=== PATIENT | male | born 1960 | race African-American/Black ===

== ENCOUNTER 2017-01-26 11:40 | Emergency (ER) | payer MEDICARE, MEDICAID ==
[~2017-01-26] VITALS: Ht 177.8 cm; Wt 77.0 kg
[2017-01-26 15:38] LABS: BASOPHILS % 0.9 % (0.0-2.0); EOSINOPHILS % 3.7 % (0.0-5.0); HEMATOCRIT. 36.8 % (42.0-52.0); HEMOGLOBIN. 12.6 g/dL (14.0-18.0); LYMPHOCYTES % 22.2 % (20.0-50.0); MEAN CORPUSCULAR HEMOGLOBIN 31.3 pg (28.0-32.0); MEAN CORPUSCULAR VOLUME 91.7 fL (80.0-94.0); MEAN PLATELET VOLUME 8.9 fl (7.4-10.4); MONOCYTES % 11.6 % (2.0-8.0); NEUTROPHILS % 61.6 % (40.0-76.0); PLATELET 151 x1000/uL (130-400); RED BLOOD CELL COUNT 4.02 mill/uL (4.7-6.1); RED CELL DISTRIBUTION WIDTH 13.8 % (11.6-14.6)
[2017-01-26 15:43] LABS: INR 1.1; PARTIAL THROMBOPLASTIN TIME 28.6 sec (24.0-34.0); PROTHROMBIN TIME 11.7 sec
[2017-01-26 15:44] LABS: CARBON DIOXIDE 30 mEq/L (21-32); CHLORIDE 106 mEq/L (98-107)
[2017-01-26 16:50] LABS: CLARITY URINE CLEAR (CLEAR); COLOR URINE YELLOW (YELLOW); GLUCOSE URINE NEGATIVE (NEGATIVE); KETONES URINE NEGATIVE (NEGATIVE); LEUKOCYTE ESTERASE URINE NEGATIVE (NEGATIVE); NITRITE URINE NEGATIVE (NEGATIVE); OCCULT BLOOD URINE NEGATIVE (NEGATIVE); PH URINE 6.5 (4.5-8.0); PROTEIN URINE NEGATIVE (NEGATIVE); SPECIFIC GRAVITY URINE 1.029 (1.005-1.030)
[2017-01-26] MEDS ORDERED: KETOROLAC 30MG/ML VIAL IV ONE (18:30)
[2017-01-26 19:14] VITALS: BP 136/85
== END 2017-01-26 19:24 | disposition home or self-care (01) ==
LOC: ER 14:58
DX: M54.2 Cervicalgia (principal); R51 Headache; M54.9 Dorsalgia, unspecified; F12.10 Cannabis abuse, uncomplicated; V19.9XXA Pedal cyclist (driver) (passenger) injured in unspecified traffic accident, initial encounter; Y93.89 Activity, other specified; Y92.89 Other specified places as the place of occurrence of the external cause; Y99.8 Other external cause status
CPT/HCPCS: 36415; 70450; 72125; 80053; 81003; 85025; 85610; 85730; 99285

== ENCOUNTER 2017-06-22 12:19 | Emergency (ER) | payer MEDICARE, MEDICAID ==
[~2017-06-22] VITALS: Ht 170.2 cm; Wt 70.0 kg
[~2017-06-22 12:19] MED LIST: OXYC30TA89 PO
[2017-06-22] MEDS ORDERED: ACETAMINOPHEN WITH CODEINE 300/30MG TABLET PO STA (13:38)
[2017-06-22 14:40] LABS: BASOPHILS % 0.7 % (0.0-2.0); EOSINOPHILS % 6.4 % (0.0-5.0); HEMATOCRIT. 37.4 % (42.0-52.0); HEMOGLOBIN. 12.8 g/dL (14.0-18.0); LYMPHOCYTES % 28.6 % (20.0-50.0); MEAN CORPUSCULAR HEMOGLOBIN 31.9 pg (28.0-32.0); MEAN PLATELET VOLUME 8.8 fl (7.4-10.4); NEUTROPHILS % 50.3 % (40.0-76.0); PLATELET 172 x1000/uL (130-400); RED BLOOD CELL COUNT 4.02 mill/uL (4.7-6.1); RED CELL DISTRIBUTION WIDTH 13.7 % (11.6-14.6)
[2017-06-22 14:45] LABS: INR 1.1; PROTHROMBIN TIME 11.3 sec (9.4-11.6)
[2017-06-22 14:55] LABS: CARBON DIOXIDE 32 mEq/L (21-32); CHLORIDE 105 mEq/L (98-107); ETHANOL BLOOD < 10 mg/dL; TROPONIN I < 0.02 ng/mL (0.00-0.04)
[2017-06-22 15:24] LABS: *AMPHETAMINES SCREEN URINE NEGATIVE (NEGATIVE); *BARBITURATES SCREEN URINE NEGATIVE (NEGATIVE); *BENZODIAZEPINES SCREEN URINE NEGATIVE (NEGATIVE); *COCAINE SCREEN URINE NEGATIVE (NEGATIVE); CANNABINOID URINE SCREEN NEGATIVE (NEGATIVE); METHADONE URINE SCREEN NEGATIVE (NEGATIVE); OPIATES URINE SCREEN NEGATIVE (NEGATIVE); PHENCYCLIDINE URINE SCREEN NEGATIVE (NEGATIVE)
[2017-06-22] MEDS ORDERED: IBUPROFEN 600MG TABLET PO ONE (16:00)
[2017-06-22 16:13] VITALS: BP 150/92
== END 2017-06-22 16:23 | disposition home or self-care (01) ==
LOC: ER 12:30
DX: R07.89 Other chest pain (principal); F12.10 Cannabis abuse, uncomplicated
CPT/HCPCS: 36415; 80053; 80305; 83880; 84484; 85025; 85610; 93005; 99285; G0482

== ENCOUNTER 2017-07-02 15:44 | Emergency (ER) | payer MEDICARE, MEDICAID ==
[~2017-07-02] VITALS: Ht 185.4 cm; Wt 73.0 kg
[2017-07-02 18:21] LABS: BASOPHILS % 0.6 % (0.0-2.0); EOSINOPHILS % 3.7 % (0.0-5.0); HEMATOCRIT. 38.4 % (42.0-52.0); LYMPHOCYTES % 12.1 % (20.0-50.0); MEAN CORPUSCULAR HEMOGLOBIN 31.7 pg (28.0-32.0); MEAN CORPUSCULAR VOLUME 93.9 fL (80.0-94.0); MEAN PLATELET VOLUME 8.3 fl (7.4-10.4); MONOCYTES % 14.4 % (2.0-8.0); NEUTROPHILS % 69.2 % (40.0-76.0); PLATELET 216 x1000/uL (130-400); RED BLOOD CELL COUNT 4.09 mill/uL (4.7-6.1); RED CELL DISTRIBUTION WIDTH 13.9 % (11.6-14.6)
[2017-07-02 18:23] LABS: CHLORIDE 107 mEq/L (98-107)
[2017-07-02 18:24] LABS: INR 1.1; PROTHROMBIN TIME 11.2 sec (9.4-11.6)
[2017-07-02 18:31] LABS: CARBON DIOXIDE 30 mEq/L (21-32); ETHANOL BLOOD < 10 mg/dL
[2017-07-02 19:28] LABS: CLARITY URINE CLEAR (CLEAR); COLOR URINE YELLOW (YELLOW); KETONES URINE TRACE (NEGATIVE); LEUKOCYTE ESTERASE URINE NEGATIVE (NEGATIVE); NITRITE URINE NEGATIVE (NEGATIVE); OCCULT BLOOD URINE NEGATIVE (NEGATIVE); PROTEIN URINE TRACE (NEGATIVE); SPECIFIC GRAVITY URINE 1.024 (1.005-1.030)
[2017-07-02 19:37] LABS: *AMPHETAMINES SCREEN URINE PRESUMTIVE POSITIVE (NEGATIVE); *BARBITURATES SCREEN URINE NEGATIVE (NEGATIVE); *BENZODIAZEPINES SCREEN URINE NEGATIVE (NEGATIVE); *COCAINE SCREEN URINE NEGATIVE (NEGATIVE); CANNABINOID URINE SCREEN NEGATIVE (NEGATIVE); METHADONE URINE SCREEN NEGATIVE (NEGATIVE); OPIATES URINE SCREEN NEGATIVE (NEGATIVE); PHENCYCLIDINE URINE SCREEN NEGATIVE (NEGATIVE)
[2017-07-02] MEDS ORDERED: MORPHINE SULFATE 4 MG/ML CPJ (NOT FOR IM USE) IV ONE (22:15)
[2017-07-03 01:06] VITALS: BP 131/87
== END 2017-07-03 01:27 | disposition home or self-care (01) ==
LOC: ER 15:44
DX: M48.061 Spinal stenosis, lumbar region without neurogenic claudication (principal); M51.26 Other intervertebral disc displacement, lumbar region; E07.9 Disorder of thyroid, unspecified; F12.10 Cannabis abuse, uncomplicated; Z98.1 Arthrodesis status
CPT/HCPCS: 36415; 72141; 72148; 80053; 80305; 81001; 85025; 85610; 96374; 99285; G0482; J2270

== ENCOUNTER 2018-10-20 23:53 | Emergency (ER) | payer MEDICARE, MEDICAID ==
[~2018-10-20] VITALS: Ht 175.3 cm; Wt 81.8 kg
[2018-10-21] MEDS ORDERED: MORPHINE SULFATE 4 MG/ML CPJ (NOT FOR IM USE) IV STA (01:18)
[2018-10-21 01:37] LABS: HEMATOCRIT. 35.8 % (42.0-52.0); HEMOGLOBIN. 11.9 g/dL (14.0-18.0); MEAN CORPUSCULAR HEMOGLOBIN 30.6 pg (28.0-32.0); MEAN PLATELET VOLUME 7.7 fl (7.4-10.4); PLATELET 217 x1000/uL (130-400); RED CELL DISTRIBUTION WIDTH 14.1 % (11.6-14.6)
[2018-10-21 01:43] LABS: CHLORIDE 109 mEq/L (98-107)
[2018-10-21 01:47] LABS: ETHANOL BLOOD < 10 mg/dL
[2018-10-21 01:49] LABS: PLATELET ESTIMATE NORMAL
[2018-10-21 05:33] LABS: *AMPHETAMINES SCREEN URINE PRESUMTIVE POSITIVE (NEGATIVE)
[2018-10-21 05:34] LABS: *BARBITURATES SCREEN URINE NEGATIVE (NEGATIVE); *BENZODIAZEPINES SCREEN URINE NEGATIVE (NEGATIVE); *COCAINE SCREEN URINE NEGATIVE (NEGATIVE); METHADONE URINE SCREEN NEGATIVE (NEGATIVE); OPIATES URINE SCREEN PRESUMTIVE POSITIVE (NEGATIVE); PHENCYCLIDINE URINE SCREEN NEGATIVE (NEGATIVE)
[2018-10-21 05:35] LABS: CANNABINOID URINE SCREEN NEGATIVE (NEGATIVE)
[2018-10-21 06:14] VITALS: BP 117/76
== END 2018-10-21 06:25 | disposition home or self-care (01) ==
LOC: ER 23:53
DX: R60.0 Localized edema (principal); F12.10 Cannabis abuse, uncomplicated; Z98.890 Other specified postprocedural states
CPT/HCPCS: 36415; 71045; 80053; 80305; 80320; 83880; 85025; 93005; 93970; 96374; 99284; J2270; G0480

== ENCOUNTER 2021-08-22 04:35 | Inpatient (IN) | payer MEDICARE, MEDICAID ==
[~2021-08-22] VITALS: Ht 177.8 cm; Wt 83.5 kg
[~2021-08-22 04:35] MED LIST changes: +MIRA50TA PO; -OXYC30TA89 PO; +TAMS-11 PO
[2021-08-22 05:28] LABS: EOSINOPHILS % 11.2 % (0.0-5.0); HEMATOCRIT. 39.2 % (42.0-52.0); HEMOGLOBIN. 13.6 g/dL (14.0-18.0); LYMPHOCYTES % 30.6 % (20.0-50.0); MEAN CORPUSCULAR HEMOGLOBIN 31.5 pg (28.0-32.0); MEAN PLATELET VOLUME 9.1 fl (7.4-10.4); MONOCYTES % 11.7 % (2.0-8.0); NEUTROPHILS % 45.5 % (40.0-76.0); PLATELET 143 x1000/uL (130-400); RED BLOOD CELL COUNT 4.31 mill/uL (4.7-6.1); RED CELL DISTRIBUTION WIDTH 14.1 % (11.6-14.6)
[2021-08-22 05:41] LABS: CHLORIDE 111 mEq/L (98-107)
[2021-08-22 05:46] LABS: ETHANOL BLOOD < 10 mg/dL
[2021-08-22] MEDS ORDERED: IOHEXOL-350 100 ML BOTTLE ONE (05:54)
[2021-08-22 06:19] LABS: CLARITY URINE CLEAR (CLEAR); COLOR URINE YELLOW (YELLOW); KETONES URINE NEGATIVE (NEGATIVE); LEUKOCYTE ESTERASE URINE NEGATIVE (NEGATIVE); NITRITE URINE NEGATIVE (NEGATIVE); OCCULT BLOOD URINE NEGATIVE (NEGATIVE); PH URINE 7.5 (4.5-8.0); PROTEIN URINE NEGATIVE (NEGATIVE); SPECIFIC GRAVITY URINE 1.027 (1.005-1.030); UROBILINOGEN URINE 0.2 E.U./dL (0.2-1.0)
[2021-08-22 06:48] LABS: *AMPHETAMINES SCREEN URINE NEGATIVE (NEGATIVE); *BARBITURATES SCREEN URINE NEGATIVE (NEGATIVE); *BENZODIAZEPINES SCREEN URINE NEGATIVE (NEGATIVE); *COCAINE SCREEN URINE NEGATIVE (NEGATIVE)
[2021-08-22 06:49] LABS: OPIATES URINE SCREEN NEGATIVE (NEGATIVE)
[2021-08-22 06:50] LABS: CANNABINOID URINE SCREEN NEGATIVE (NEGATIVE); METHADONE URINE SCREEN NEGATIVE (NEGATIVE); PHENCYCLIDINE URINE SCREEN NEGATIVE (NEGATIVE)
[2021-08-22] MEDS ORDERED: ASPIRIN 325MG EC TABLET PO ONE (12:30)
[2021-08-22 16:30] VITALS: BP 160/97
[2021-08-22 17:00] VITALS: BP 160/97
[2021-08-22] MEDS: AMLODIPINE 10MG TABLET PO SCH (18:47)
[2021-08-22 20:00] VITALS: BP 127/84
[2021-08-23] VITALS: BP 132/90
[2021-08-23] MEDS ORDERED: ACETAMINOPHEN 650MG/20.3ML UDC PO PRN (02:30)
[2021-08-23 04:00] VITALS: BP 142/95
[2021-08-23] MEDS: ACETAMINOPHEN 325MG TABLET PO PRN (06:27)
[2021-08-23 08:00] VITALS: BP 124/91
[2021-08-23] MEDS: ASPIRIN 81MG TABLET PO SCH (09:35)
[2021-08-23] MEDS: AMLODIPINE 10MG TABLET PO SCH (09:35)
[2021-08-23 12:00] VITALS: BP 114/86
[2021-08-23 16:00] VITALS: BP 130/94
[2021-08-23 20:00] VITALS: BP 126/85
[2021-08-24] VITALS: BP 116/82
[2021-08-24 04:00] VITALS: BP 139/90
[2021-08-24 06:50] LABS: BASOPHILS % 0.9 % (0.0-2.0); EOSINOPHILS % 9.6 % (0.0-5.0); HEMATOCRIT. 39.9 % (42.0-52.0); HEMOGLOBIN. 13.9 g/dL (14.0-18.0); LYMPHOCYTES % 33.3 % (20.0-50.0); MEAN CORPUSCULAR HEMOGLOBIN 31.5 pg (28.0-32.0); MEAN CORPUSCULAR VOLUME 90.2 fL (80.0-94.0); MEAN PLATELET VOLUME 9.6 fl (7.4-10.4); NEUTROPHILS % 43.2 % (40.0-76.0); PLATELET 149 x1000/uL (130-400); RED BLOOD CELL COUNT 4.43 mill/uL (4.7-6.1); RED CELL DISTRIBUTION WIDTH 14.2 % (11.6-14.6)
[2021-08-24 07:29] LABS: CHLORIDE 110 mEq/L (98-107)
[2021-08-24 07:52] LABS: T4 FREE 1.06 ng/dL (0.76-1.46)
[2021-08-24 08:00] VITALS: BP 130/91
[2021-08-24] MEDS: ASPIRIN 81MG TABLET PO SCH (09:29)
[2021-08-24] MEDS: AMLODIPINE 10MG TABLET PO SCH (09:29)
[2021-08-24 10:54] LABS: FOLIC ACID (FOLATE) SERUM 10.4 ng/mL (>5.38)
[2021-08-24 12:00] VITALS: BP 100/75
[2021-08-24 13:13] LABS: HEMATOCRIT 44.2 % (42.0-52.0); HEMOGLOBIN 14.7 g/dL (14.0-18.0)
[2021-08-24 16:00] VITALS: BP 134/89
[2021-08-24 20:00] VITALS: BP 138/75
[2021-08-25] VITALS: BP 133/92
[2021-08-25] MEDS: ACETAMINOPHEN 325MG TABLET PO PRN ×2 (01:29→12:33)
[2021-08-25 04:00] VITALS: BP 99/70
[2021-08-25 04:11] LABS: CANCER ANTIGEN 125 12.1 U/mL (Not Estab.)
[2021-08-25 08:00] VITALS: BP 125/82
[2021-08-25 09:00] LABS: BASOPHILS % 1.1 % (0.0-2.0); EOSINOPHILS % 10.7 % (0.0-5.0); HEMATOCRIT. 41.5 % (42.0-52.0); HEMOGLOBIN. 14.1 g/dL (14.0-18.0); LYMPHOCYTES % 31.5 % (20.0-50.0); MEAN CORPUSCULAR HEMOGLOBIN 30.7 pg (28.0-32.0); MEAN CORPUSCULAR VOLUME 90.7 fL (80.0-94.0); MEAN PLATELET VOLUME 9.4 fl (7.4-10.4); MONOCYTES % 13.7 % (2.0-8.0); PLATELET 157 x1000/uL (130-400); RED BLOOD CELL COUNT 4.57 mill/uL (4.7-6.1); RED CELL DISTRIBUTION WIDTH 13.9 % (11.6-14.6)
[2021-08-25] MEDS: AMLODIPINE 10MG TABLET PO SCH (09:23)
[2021-08-25] MEDS: ASPIRIN 81MG TABLET PO SCH (09:23)
[2021-08-25 09:36] LABS: CHLORIDE 110 mEq/L (98-107)
[2021-08-25 12:00] VITALS: BP 117/82
[2021-08-25 16:00] VITALS: BP 120/82
[2021-08-25 20:00] VITALS: BP 122/78
[2021-08-26] VITALS: BP 113/73
[2021-08-26 04:00] VITALS: BP 122/76
[2021-08-26 07:34] LABS: BASOPHILS % 1.1 % (0.0-2.0); EOSINOPHILS % 11.5 % (0.0-5.0); HEMATOCRIT. 40.2 % (42.0-52.0); HEMOGLOBIN. 14.3 g/dL (14.0-18.0); LYMPHOCYTES % 39.2 % (20.0-50.0); MEAN CORPUSCULAR HEMOGLOBIN 32.3 pg (28.0-32.0); MEAN CORPUSCULAR VOLUME 90.5 fL (80.0-94.0); MEAN PLATELET VOLUME 9.6 fl (7.4-10.4); MONOCYTES % 13.5 % (2.0-8.0); NEUTROPHILS % 34.7 % (40.0-76.0); PLATELET 159 x1000/uL (130-400); RED BLOOD CELL COUNT 4.44 mill/uL (4.7-6.1); RED CELL DISTRIBUTION WIDTH 13.9 % (11.6-14.6)
[2021-08-26 07:45] VITALS: BP 132/81
[2021-08-26 07:54] LABS: CHLORIDE 109 mEq/L (98-107)
[2021-08-26] MEDS: AMLODIPINE 10MG TABLET PO SCH (09:14)
[2021-08-26] MEDS: ASPIRIN 81MG TABLET PO SCH (09:14)
[2021-08-26 11:54] VITALS: BP 116/84
[2021-08-26 16:00] VITALS: BP 115/76
[2021-08-26] MEDS: ACETAMINOPHEN 325MG TABLET PO PRN (16:18)
[2021-08-26 20:00] VITALS: BP 123/79
[2021-08-27] VITALS: BP 132/80
[2021-08-27] MEDS: ACETAMINOPHEN 325MG TABLET PO PRN (02:10)
[2021-08-27 04:50] VITALS: BP 140/91
[2021-08-27 05:10] VITALS: BP 154/96
[2021-08-27 05:31] LABS: HEMATOCRIT. 42.1 % (42.0-52.0); HEMOGLOBIN. 13.9 g/dL (14.0-18.0); MEAN CORPUSCULAR VOLUME 90.8 fL (80.0-94.0); MEAN PLATELET VOLUME 9.1 fl (7.4-10.4); PLATELET 156 x1000/uL (130-400); RED BLOOD CELL COUNT 4.64 mill/uL (4.7-6.1); RED CELL DISTRIBUTION WIDTH 14.1 % (11.6-14.6)
[2021-08-27 05:38] LABS: CHLORIDE 109 mEq/L (98-107)
[2021-08-27] MEDS ORDERED: HYDRALAZINE 20MG/ML VIAL IV PRN (05:45)
[2021-08-27 05:50] VITALS: BP 133/85
[2021-08-27] MEDS ORDERED: AMLO10TA80 PO (07:39)
[2021-08-27] MEDS ORDERED: ASPI-1497 MT (07:39)
[2021-08-27 08:00] VITALS: BP 140/87
[2021-08-27] MEDS: AMLODIPINE 10MG TABLET PO SCH (08:09)
[2021-08-27] MEDS: ASPIRIN 81MG TABLET PO SCH (08:09)
[2021-08-27 09:32] VITALS: BP 140/87
[2021-08-27] MEDS ORDERED: IOHEXOL-350 100 ML BOTTLE ONE (09:47)
[2021-08-28 00:06] LABS: PLATELET ESTIMATE NORMAL
== END 2021-08-27 11:08 | disposition home health service (06) | DRG 91 ==
LOC: ER 04:35 → 8WST 07:56 → EDBEDREQ 08:05 → EDBEDREQSVC 08:05 → EDBEDREQTM 08:05 → ENRESERV 13:25
PROVIDERS: ADMIT Internal Medicine; ATTEND Internal Medicine
PROC: 0GBG3ZX Excision of Left Thyroid Gland Lobe, Percutaneous Approach, Diagnostic (ICD-10-PCS; principal; 2021-08-24)
DX: G95.89 Other specified diseases of spinal cord (principal); G82.50 Quadriplegia, unspecified; K59.2 Neurogenic bowel, not elsewhere classified; R53.1 Weakness; E87.8 Other disorders of electrolyte and fluid balance, not elsewhere classified; D64.9 Anemia, unspecified; G89.4 Chronic pain syndrome; M41.9 Scoliosis, unspecified; M47.819 Spondylosis without myelopathy or radiculopathy, site unspecified; M48.061 Spinal stenosis, lumbar region without neurogenic claudication; G43.909 Migraine, unspecified, not intractable, without status migrainosus; M48.02 Spinal stenosis, cervical region; E07.9 Disorder of thyroid, unspecified; R26.9 Unspecified abnormalities of gait and mobility; M51.26 Other intervertebral disc displacement, lumbar region; Z82.49 Family history of ischemic heart disease and other diseases of the circulatory system; Z98.1 Arthrodesis status; Z79.899 Other long term (current) drug therapy; Z86.73 Personal history of transient ischemic attack (TIA), and cerebral infarction without residual deficits; W22.09XA Striking against other stationary object, initial encounter; W19.XXXA Unspecified fall, initial encounter; D72.819 Decreased white blood cell count, unspecified
CPT/HCPCS: 36415; 70496; 70498; 70551; 71045; 72141; 72148; 76536; 76700; 80048; 80053; 80305; 80320; 81003; 82306; 82378; 82607; 82746; 82962; 84439; 84443; 84481; 84484; 85014; 85018; 85025; 86301; 86304; 87426; 93005; 97116; 97162; 97166; 99291; C1893; J0360; Q9967; G0480

== ENCOUNTER 2022-10-24 14:26 | Emergency (ER) | payer MEDICARE, MEDICAID ==
[~2022-10-24] VITALS: Ht 177.8 cm; Wt 82.0 kg
[~2022-10-24 14:26] MED LIST changes: +AMLO10TA80 PO; +ASPI-1497 MT
[2022-10-24] MEDS ORDERED: IBUPROFEN 400MG TABLET PO ONE (16:15)
[2022-10-24 16:29] VITALS: BP 150/85
== END 2022-10-24 16:44 | disposition home or self-care (01) ==
LOC: ER 14:26
DX: B34.9 Viral infection, unspecified (principal)
CPT/HCPCS: 99282

== ENCOUNTER 2022-11-11 14:10 | Emergency (ER) | payer MEDICARE, MEDICAID ==
[~2022-11-11] VITALS: Ht 177.8 cm; Wt 78.0 kg
[2022-11-11] MEDS ORDERED: KETOROLAC 30MG/ML VIAL IV ONE (14:45)
[2022-11-11] MEDS ORDERED: METHOCARBAMOL 500MG TABLET PO ONE (14:45)
[2022-11-11 15:38] LABS: CHLORIDE 108 mEq/L (98-107)
[2022-11-11 15:40] LABS: BASOPHILS % 0.9 % (0.0-2.0); EOSINOPHILS % 6.8 % (0.0-5.0); HEMATOCRIT. 36.5 % (42.0-52.0); HEMOGLOBIN. 12.2 g/dL (14.0-18.0); LYMPHOCYTES % 17.3 % (20.0-50.0); MEAN CORPUSCULAR HEMOGLOBIN 31.7 pg (28.0-32.0); MEAN CORPUSCULAR VOLUME 94.5 fL (80.0-94.0); MEAN PLATELET VOLUME 9.7 fl (7.4-10.4); MONOCYTES % 12.1 % (2.0-8.0); NEUTROPHILS % 62.9 % (40.0-76.0); PLATELET 149 x1000/uL (130-400); RED BLOOD CELL COUNT 3.87 mill/uL (4.7-6.1); RED CELL DISTRIBUTION WIDTH 14.8 % (11.6-14.6)
[2022-11-11 15:45] LABS: INR 1.1; PROTHROMBIN TIME 11.4 sec (9.6-11.0)
[2022-11-11 16:07] LABS: CLARITY URINE CLEAR (CLEAR); COLOR URINE DARK YELLOW (YELLOW); KETONES URINE TRACE (NEGATIVE); LEUKOCYTE ESTERASE URINE NEGATIVE (NEGATIVE); NITRITE URINE NEGATIVE (NEGATIVE); OCCULT BLOOD URINE NEGATIVE (NEGATIVE); PH URINE 5.5 (4.5-8.0); PROTEIN URINE TRACE (NEGATIVE); SPECIFIC GRAVITY URINE 1.022 (1.005-1.030)
[2022-11-11] MEDS ORDERED: MORPHINE SULFATE 10 MG/ML CPJ IM ONE (16:30)
[2022-11-11] MEDS ORDERED: LIDO700A15 TP (18:05)
[2022-11-11] MEDS ORDERED: ACET-2708 MT (18:05)
[2022-11-11 18:15] VITALS: BP 132/90
== END 2022-11-11 18:35 | disposition home or self-care (01) ==
LOC: ER 14:13
DX: R10.9 Unspecified abdominal pain (principal); G43.909 Migraine, unspecified, not intractable, without status migrainosus; I10 Essential (primary) hypertension; Z86.59 Personal history of other mental and behavioral disorders; Z86.73 Personal history of transient ischemic attack (TIA), and cerebral infarction without residual deficits
CPT/HCPCS: 36415; 74176; 80053; 81003; 83605; 83690; 85025; 85610; 86850; 86900; 86901; 96372; 96374; 99285; J1885; J2270

== ENCOUNTER 2025-04-23 11:19 | Emergency (ER) | payer MEDICARE, MEDICAID ==
[~2025-04-23] VITALS: Ht 180.3 cm; Wt 68.0 kg
[~2025-04-23 11:19] MED LIST changes: +ACET-2708 MT; +LIDO-53 TP; -TAMS-11 PO; +TAMS-54 PO
[2025-04-23 11:35] VITALS: TEMP 36.8; O2SAT 100
[2025-04-23] MEDS: KETOROLAC 30MG/ML VIAL IM ONE (12:15)
[2025-04-23 14:07] VITALS: BP 120/90; PULSE 73; RESP 16; O2SAT 99
== END 2025-04-23 14:10 | disposition home or self-care (01) ==
LOC: ER 11:19
DX: S39.91XA Unspecified injury of abdomen, initial encounter (principal); M25.552 Pain in left hip; I10 Essential (primary) hypertension; Z86.73 Personal history of transient ischemic attack (TIA), and cerebral infarction without residual deficits; Z98.890 Other specified postprocedural states; Y04.8XXA Assault by other bodily force, initial encounter; Y92.89 Other specified places as the place of occurrence of the external cause; Y93.89 Activity, other specified
CPT/HCPCS: 99285; 76700; 73502; 96372; J1885